=== PATIENT | female | born 1980 | race Asian ===

== ENCOUNTER 2019-04-10 07:30 | Inpatient (IN) | payer MEDICAID ==
[~2019-04-10] VITALS: Ht 160 cm; Wt 88.5 kg
[~2019-04-10 07:30] MED LIST: HYDROmorphone 1 MG/ML AMP IVP PRN; METHYLERGONOVINE 0.2 MG/ML AMP ONE; ONDANSETRON 4 MG/2 ML VIAL IVP PRN; PROMETHAZINE 25 MG/ML VIAL ONE; diphenhydrAMINE 50 MG/ML VIAL IVP PRN
--- NOTE | 2019-04-10 08:08 | NUR ---
PATIENT HAS BEEN SCREENED AND CATEGORIZED LOW NUTRITION RISK. PATIENT WILL BE SEEN WITHIN 7 DAYS OF ADMISSION. 04/16/[address]
[2019-04-10] MEDS ORDERED: LACTATED RINGERS 1,000 ML IV SCH ×2 (09:00→18:44)
[2019-04-10] MEDS ORDERED: FERR-252 PO (09:12)
[2019-04-10] MEDS ORDERED: PREN-380 PO (09:12)
[2019-04-10] MEDS ORDERED: OSC500 PO (09:12)
[2019-04-10] MEDS ORDERED: CITRIC ACID/SODIUM CITRATE 30 ML UDC PO SCH (09:15)
[2019-04-10 09:50] LABS: BASOPHILS % (AUTO) 0.3 % (0.0-2.0); EOSINOPHILS # (AUTO) 0.1 K/uL (0-0.4); EOSINOPHILS % (AUTO) 1.6 % (0.0-4.0); HEMOGLOBIN 12.8 g/dL (12.0-16.0); LYMPHOCYTES % (AUTO) 13.3 % (20.5-51.1); MEAN CORPUSCULAR HEMOGLOBIN 29 pg (27-31); MEAN CORPUSCULAR HGB CONC 33 g/dL (33-37); MEAN CORPUSCULAR VOLUME 88.8 fL (80-94); MONOCYTES # (AUTO) 0.6 K/uL (0.8-1.0); MONOCYTES % (AUTO) 7.7 % (1.7-9.3); NEUTROPHILS # (AUTO) 5.7 K/uL (1.8-7.7); NEUTROPHILS % (AUTO) 77.1 % (42.2-75.2); PLATELET COUNT (AUTO) 228 K/uL (140-450); RED BLOOD CELL COUNT(AUTO) 4.39 MIL/uL (4.20-5.40); RED CELL DISTRIBUTION WIDTH 14.4 % (11.6-13.7); WHITE BLOOD COUNT (AUTO) 7.4 K/uL (4.8-10.8)
[2019-04-10 10:00] VITALS: BP 126/83
[2019-04-10 10:02] LABS: ALBUMIN 2.3 g/dL (3.4-5.0); ANION GAP 11.6 (8-16); CARBON DIOXIDE 23.8 mmol/L (21-32); CREATININE 0.7 mg/dL (0.6-1.3); POTASSIUM 4.4 mmol/L (3.5-5.1); TOTAL BILIRUBIN 0.3 mg/dL (0.0-1.0)
[2019-04-10 10:48] LABS: APPEARANCE,URINE CLEAR (CLEAR); BILIRUBIN,URINE NEGATIVE (NEGATIVE); BLOOD, URINE NEGATIVE (NEGATIVE); COLOR,URINE YELLOW (YELLOW); LEUKOCYTE ESTERASE ,URINE TRACE (NEGATIVE); NITRITE, URINE NEGATIVE (NEGATIVE); PH,URINE 6.5 (5.0-9.0); UGLUCOSE NEGATIVE (NEGATIVE)
[2019-04-10 11:55] LABS: RBC,URINE 0 /HPF (0-5); WBC,URINE 0-5 /HPF (0-5)
[2019-04-10] MEDS ORDERED: CITRIC ACID/SODIUM CITRATE 30 ML UDC ONE ×2 (13:00→23:20)
[2019-04-10] MEDS ORDERED: fentaNYL 0.05 MG/ML VIAL ONE (13:34)
[2019-04-10] MEDS ORDERED: MORPHINE PRES FREE 10 MG/10 ML AMP IV ONE (13:34)
[2019-04-10] MEDS ORDERED: ePHEDrine 50 MG/ML VIAL ONE (13:46)
[2019-04-10] MEDS ORDERED: diphenhydrAMINE 50 MG/ML VIAL IVP PRN (14:20)
[2019-04-10] MEDS ORDERED: ONDANSETRON 4 MG/2 ML VIAL IVP PRN ×2 (14:20)
[2019-04-10] MEDS ORDERED: NALBUPHINE 10 MG/ML AMP IVP PRN (14:20)
[2019-04-10] MEDS ORDERED: NALOXONE 0.4 MG/ML VIAL IVP PRN ×3 (14:20)
[2019-04-10] MEDS ORDERED: OXYTOCIN 20 UNITS/LR PREMIX 1,000 ML IV ONE (14:36)
[2019-04-10] MEDS ORDERED: OXYTOCIN 10 UNITS in LACTATED RINGERS 1,000 ML IV SCH ×2 (16:18→17:20)
[2019-04-10] MEDS ORDERED: TRIMETHOBENZAMIDE 200 MG/2 ML SYR IM PRN (16:20)
[2019-04-10] MEDS ORDERED: MEASLES, MUMPS, AND RUBELLA 1 VIAL SQVAC PRN (16:20)
[2019-04-10] MEDS ORDERED: METHYLERGONOVINE 0.2 MG/ML AMP IM PRN ×2 (16:20→18:45)
[2019-04-10] MEDS ORDERED: ONDANSETRON 4 MG/2 ML VIAL ONE (16:22)
[2019-04-10] MEDS ORDERED: OXYTOCIN 20 UNITS in LACTATED RINGERS 1,000 ML IV SCH (17:25)
[2019-04-10] MEDS ORDERED: KETOROLAC 30 MG/ML VIAL IM/IVP SCH (18:00)
[2019-04-10] MEDS ORDERED: CARBOPROST 250 MCG/ML AMP IM PRN (18:45)
[2019-04-10] MEDS: KETOROLAC 30 MG/ML VIAL IVP PRN (22:02)
[2019-04-10] MEDS ORDERED: ACETAMINOPHEN 325 MG TAB ONE (22:55)
[2019-04-11] MEDS ORDERED: OXYTOCIN 10 UNITS/ML VIAL ONE (01:28)
[2019-04-11] MEDS: KETOROLAC 30 MG/ML VIAL IVP PRN ×2 (05:50→13:36)
[2019-04-11] MEDS ORDERED: PROMETHAZINE 25 MG/ML VIAL IVP PRN (08:00)
[2019-04-11] MEDS: oxyCODONE/APAP 5/325 MG 1 TAB TAB PO PRN (18:02)
[2019-04-12] MEDS: oxyCODONE/APAP 5/325 MG 1 TAB TAB PO PRN ×3 (07:11→21:03)
[2019-04-12] MEDS: BISACODYL 10 MG SUPP RC SCH (14:12)
[2019-04-13] MEDS: oxyCODONE/APAP 5/325 MG 1 TAB TAB PO PRN ×2 (08:39→14:17)
[2019-04-13] MEDS: BISACODYL 10 MG SUPP RC SCH (08:40)
[2019-04-13] MEDS ORDERED: INFLUENZA VACCINE QUAD 0.5 ML SYR IMVAC PRN (11:25)
[2019-04-13] MEDS ORDERED: INFLUENZA VACCINE QUAD 0.5 ML SYR IM PRN (12:25)
[2019-04-14] MEDS: oxyCODONE/APAP 5/325 MG 1 TAB TAB PO PRN ×2 (12:36→17:21)
== END 2019-04-14 18:45 | disposition home or self-care (01) | DRG 540 ==
LOC: MLD 07:47 → MFCC 14:18
PROVIDERS: ADMIT Obstetrics & Gynecology; ATTEND Obstetrics & Gynecology
PROC: 0UB70ZZ Excision of Bilateral Fallopian Tubes, Open Approach (ICD-10-PCS; 2019-04-10)
PROC: 0UN90ZZ Release Uterus, Open Approach (ICD-10-PCS; 2019-04-10)
PROC: 10D00Z1 Extraction of Products of Conception, Low, Open Approach (ICD-10-PCS; principal; 2019-04-10 07:30)
PROC: 3E0234Z Introduction of Serum, Toxoid and Vaccine into Muscle, Percutaneous Approach (ICD-10-PCS; 2019-04-13)
DX: O34.211 Maternal care for low transverse scar from previous cesarean delivery (principal); O24.420 Gestational diabetes mellitus in childbirth, diet controlled; K66.0 Peritoneal adhesions (postprocedural) (postinfection); Z37.0 Single live birth; Z30.2 Encounter for sterilization; Z3A.39 39 weeks gestation of pregnancy; O99.62 Diseases of the digestive system complicating childbirth; O69.81X0 Labor and delivery complicated by cord around neck, without compression, not applicable or unspecified; Z23 Encounter for immunization
CPT/HCPCS: 36415; 80053; 81001; 85025; 86592; 86886; 86900; 86901; 87081; 87086; 88302; 90707; 90715; J0690; J1885; J2270; J2405; J2590; J3010; J7060; J7120